=== PATIENT | male | born 1945 | race Caucasian/White ===

== ENCOUNTER 2023-10-14 15:10 | Outpatient (RCR) | payer OTHER, SELFPAY | END 2023-10-14 23:59 | disposition home or self-care (01) | LOC: CRHB 15:10 | PROVIDERS: ATTENDING PHYSICIAN Internal Medicine Cardiovascular Disease; FAMILY PHYSICIAN Internal Medicine | DX: I25.10 Atherosclerotic heart disease of native coronary artery without angina pectoris (principal); Z95.1 Presence of aortocoronary bypass graft | CPT/HCPCS: G0422; G0423 ==

== ENCOUNTER 2023-11-11 14:47 | Outpatient (RCR) | payer OTHER, SELFPAY | END 2023-11-11 23:59 | disposition home or self-care (01) | LOC: CRHB 14:47 | PROVIDERS: ATTENDING PHYSICIAN Internal Medicine Cardiovascular Disease; FAMILY PHYSICIAN Internal Medicine | DX: I25.10 Atherosclerotic heart disease of native coronary artery without angina pectoris (principal); Z95.1 Presence of aortocoronary bypass graft | CPT/HCPCS: G0422; G0423 ==

== ENCOUNTER → 2023-12-03 09:34 | Outpatient (REF) | payer OTHER, SELFPAY | LOC: RCS 09:34 | PROVIDERS: ATTENDING PHYSICIAN Internal Medicine Cardiovascular Disease; FAMILY PHYSICIAN Internal Medicine | DX: I25.10 Atherosclerotic heart disease of native coronary artery without angina pectoris (principal); I20.89 Other forms of angina pectoris | CPT/HCPCS: 93017; 93350 ==

== ENCOUNTER 2023-12-11 13:19 | Outpatient (RCR) | payer OTHER, SELFPAY | END 2023-12-11 23:59 | disposition home or self-care (01) | LOC: CRHB 13:19 | PROVIDERS: ATTENDING PHYSICIAN Internal Medicine Cardiovascular Disease; FAMILY PHYSICIAN Internal Medicine | DX: Z95.4 Presence of other heart-valve replacement (principal); Z95.1 Presence of aortocoronary bypass graft (principal); I25.10 Atherosclerotic heart disease of native coronary artery without angina pectoris | CPT/HCPCS: G0422; G0423 ==

== ENCOUNTER 2023-12-21 10:00 | Outpatient (RCR) | payer OTHER, SELFPAY | END 2023-12-21 23:59 | disposition home or self-care (01) | LOC: CRHB 10:00 | PROVIDERS: ATTENDING PHYSICIAN Internal Medicine Cardiovascular Disease; FAMILY PHYSICIAN Internal Medicine | DX: I25.10 Atherosclerotic heart disease of native coronary artery without angina pectoris (principal); Z95.1 Presence of aortocoronary bypass graft | CPT/HCPCS: G0422; G0423 ==